=== PATIENT | female | born 1965 | race Asian ===

== ENCOUNTER 2020-04-08 13:10 | Emergency (ER) | payer OTHER ==
[2020-04-08 13:38] VITALS: TEMP 98.2; BMI 35.4
[2020-04-08] MEDS ORDERED: BAMLANIVIMAB 700 MG in SODIUM CHLORIDE 250 ML IVPB ONE (13:41)
[2020-04-08 15:19] LABS: BASO % 0.3 % (0-2.0); HEMATOCRIT 40.7 % (32.4-45.2); HEMOGLOBIN 13.2 GM/dL (10.7-15.3); LYMPH % 35.9 % (8-40); MCH 26.8 pg (25.7-33.7); MCHC 32.4 g/dl (32.0-36.0); MEAN CELL VOLUME 82.9 fl (80-96); MEAN PLT VOLUME 10.3 fl (7.5-11.1); MONO % 9.3 % (3.8-10.2); NEUT % 54.5 % (42.8-82.8); PLATELET COUNT 183 K/MM3 (134-434); RBC 4.92 M/mm3 (3.60-5.2); RDW 14.5 % (11.6-15.6); WHITE BLOOD COUNT 5.2 K/mm3 (4.0-10.0)
[2020-04-08 15:39] LABS: POTASSIUM 3.6 mmol/L (3.5-5.1)
[2020-04-08 15:42] LABS: ALBUMIN 3.3 g/dl (3.4-5.0); BLOOD UREA NITROGEN 7.3 mg/dL (7-18); CALCIUM 8.4 mg/dL (8.5-10.1)
[2020-04-08 15:45] LABS: CREATININE 0.8 mg/dL (0.55-1.3)
[2020-04-08 15:47] LABS: BILIRUBIN,TOTAL 0.8 mg/dL (0.2-1); TOT PROT 7.8 g/dl (6.4-8.2)
[2020-04-08 16:46] VITALS: BP 133/93; PULSE 63
== END 2020-04-08 18:10 | disposition home or self-care (01) ==
LOC: JER 13:10
PROC: 3E033GC Introduction of Other Therapeutic Substance into Peripheral Vein, Percutaneous Approach (ICD-10-PCS; principal; 2020-04-08)
DX: U07.1 COVID-19 (principal)
CPT/HCPCS: 36415; 71046-TC-FY; 80053; 85025; 99284-25; M0239; Q0239